=== PATIENT | male | born 1945 | race Caucasian/White ===

== ENCOUNTER → 2016-10-14 | Outpatient (CLI) | payer MEDICARE, BC ==
[~2016-10-14] MED LIST: ASPI-496 PO; CLOP75TA52 PO; DOCU-131 PO; FURO40TA6 PO; METO25TA35 PO; OXYC-302 PO; POTA20TA14 PO; SIMV10TA3 PO
[2016-10-14 13:56] LABS: HEMATOCRIT 41.1 % (39.2-51.8); HEMOGLOBIN 13.6 g/dL (13.7-18.0); WHITE BLOOD COUNT 6.4 x10^3/uL (3.4-10)
[2016-10-14 14:03] LABS: ASPARTATE AMINO TRANSFERASE 14 U/L (15-37); BLOOD UREA NITROGEN 9 mg/dL (7-18)
== END | disposition home or self-care (01) ==
LOC: STAR 12:49
PROVIDERS: ATTEND Otolaryngology Otolaryngology/Facial Plastic Surgery
DX: Z01.818 Encounter for other preprocedural examination (principal); C02.9 Malignant neoplasm of tongue, unspecified; I25.10 Atherosclerotic heart disease of native coronary artery without angina pectoris; R59.9 Enlarged lymph nodes, unspecified; R79.1 Abnormal coagulation profile; Z95.1 Presence of aortocoronary bypass graft
CPT/HCPCS: 36415; 71020; 80053; 85027; 85610; 85730; 93005

== ENCOUNTER 2016-10-20 09:54 | Day surgery (SDC) | payer MEDICARE, BC ==
[~2016-10-20] VITALS: Ht 175.3 cm; Wt 101.7 kg
[2016-10-20] MEDS ORDERED: LIDOCAINE 1%, 2ML ONE (11:42)
[2016-10-20 12:02] VITALS: BP 116/78
[2016-10-20] MEDS ORDERED: LACTATED RINGERS 1,000 ML IV SCH (12:04)
[2016-10-20] MEDS ORDERED: EPINEPHRINE TOPICAL SOLN 1 MG/ML, 30ML ONE (12:07)
[2016-10-20] MEDS ORDERED: LIDOCAINE GEL 2%, 5ML ONE (12:07)
[2016-10-20] MEDS ORDERED: MIDAZOLAM 1 MG/ML, 2ML ONE (12:10)
[2016-10-20] MEDS ORDERED: FENTANYL PF 100 MCG/2ML ONE (12:10)
[2016-10-20] MEDS ORDERED: PROPOFOL 10 MG/ML, 20ML ONE (12:14)
[2016-10-20] MEDS ORDERED: DEXAMETHASONE 4 MG/ML, 1ML ONE (12:14)
[2016-10-20] MEDS ORDERED: SUCCINYLCHOLINE 20 MG/ML, 10ML ONE (12:14)
[2016-10-20] MEDS ORDERED: ONDANSETRON 2MG/ML, 2ML ONE (12:14)
[2016-10-20] MEDS ORDERED: SILVER NITRATE STICK TP ONE ×2 (12:24→12:51)
[2016-10-20] MEDS ORDERED: LIDOCAINE 1%, 2ML SQ PRN (12:30)
[2016-10-20] MEDS ORDERED: ONDANSETRON 2MG/ML, 2ML IVPush PRN (13:00)
[2016-10-20] MEDS ORDERED: OXYcodone 5 MG/5 ML ORAL.SOL UDC PO PRN (13:00)
[2016-10-20] MEDS ORDERED: ACETAMINOPHEN 325 MG TABLET PO PRN (13:00)
[2016-10-20] MEDS ORDERED: FENTANYL PF 100 MCG/2ML IV PRN (13:00)
[2016-10-20] MEDS ORDERED: HYDROmorphone 1 MG/ML, 1ML IV PRN (13:00)
== END 2016-10-20 15:00 | disposition home or self-care (01) ==
LOC: OUT 09:54
PROVIDERS: ATTEND Otolaryngology Otolaryngology/Facial Plastic Surgery
DX: C01 Malignant neoplasm of base of tongue (principal); I25.10 Atherosclerotic heart disease of native coronary artery without angina pectoris; Z95.1 Presence of aortocoronary bypass graft
CPT/HCPCS: 31535; 88305; 88341; 88342; J0330; J1100; J2250; J2405; J2704; J3010; J3490; J7120; G0461